=== PATIENT | female | born 1985 | race Caucasian/White ===

== ENCOUNTER 2018-06-14 21:43 | Emergency (ER) | payer BC ==
[~2018-06-14] VITALS: Ht 162.6 cm; Wt 70.3 kg
[~2018-06-14 21:43] MED LIST: ACET325T9 PO
--- NOTE | 2018-06-14 21:45 | ED.ADGEN ---
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 ankle and foot. Pt. states injury heard while walking. Patient states it was a inversion type injury. Has limped on ankle after the injury which occurred 2-3 hrs ago. Patient states pain has gotten worse and mid foot and ankle. Distal capillary refill is equal to left foot toes. For foot squeeze did not elicit significant pain. Mid foot squeeze had mild increase in pain. Marked pain on percussion of lateral malleolus. Does have some ligament instability and right ankle. Mild lateral malleolus edema. No upper leg tenderness. There is some tenderness on palpation of acute Achilles tendon. Pain with stress Achilles tendon, but seems to have some dorsal flexion. Patient is however able to dorsiflex some. Patient is unable to void at this time. No other injuries reported. No recent travel or ill contacts. History immunosuppression. Review of Systems Review of Systems Constitutional: Denies fever or chills [] Eyes: Denies change in visual acuity, redness, or eye pain [] HENT: Denies nasal congestion or sore throat [] Respiratory: Denies cough or shortness of breath [] Cardiovascular: No additional information not addressed in HPI [] GI: Denies abdominal pain, nausea, vomiting, bloody stools or diarrhea [] : Denies dysuria or hematuria [] Musculoskeletal: Denies back pain or joint pain []except findings in right ankle and foot as per history of present illness Integument: Denies rash or skin lesions [] Neurologic: Denies headache, focal weakness or sensory changes [] Endocrine: Denies polyuria or polydipsia [] All other systems were reviewed and found to be within normal limits, except as documented in this note. Family History Family History Sister in the ICU unit at Current Medications Current Medications Current Medications Medications (Trade) Dose Ordered Sig/Frandy Start Time Stop Time Status Last Admin Dose Admin Ketorolac Tromethamine (Toradol Im) 60 mg 1X ONCE 06/14/18 23:00 06/14/18 23:21 DC 06/14/18 23:10 60 MG Oxycodone/ Acetaminophen (Percocet 5/325) 2 tab 1X ONCE 06/15/18 00:00 06/15/18 00:45 DC 06/15/18 00:43 2 TAB Noncontributory Allergies Allergies Allergies Coded Allergies Type Severity Reaction Last Updated Verified No Known Drug Allergies 09/18/13 No Physical Exam Physical Exam Constitutional: in acute distress, non-toxic appearance. [] HENT: Normocephalic, atraumatic, bilateral external ears normal, oropharynx moist, no oral exudates, nose normal. [] Eyes: PERRLA, EOMI, conjunctiva normal, no discharge. [] Neck: Normal range of motion, no tenderness, supple, no stridor. [] Cardiovascular:Heart rate regular rhythm, no murmur [] Lungs & Thorax: Bilateral breath sounds equal at apex on auscultation with scattered wheezes. Abdomen: Bowel sounds normal, soft, no tenderness, no masses, no pulsatile masses. [] Skin: Warm, dry, no erythema, no rash. [] Back: No tenderness, no CVA tenderness. [] Extremities: No tenderness, no cyanosis, no clubbing, ROM intact, no edema. [] Except findings in right ankle and foot as per history of present illness Neurologic: Alert and oriented X 3, normal motor function, normal sensory function, no focal deficits noted. [] Psychologic: Affect very anxious, judgement normal, mood normal. [] Current Patient Data Vital Signs Vital Signs Date Time Temp Pulse Resp B/P (MAP) Pulse Ox O2 Delivery O2 Flow Rate FiO2 06/14/18 21:50 97.9 110 24 98 Room Air Lab Results Laboratory Tests Test 06/14/18 22:30 06/14/18 22:43 Urine Collection Type Void Urine Color Yellow Urine Clarity Hazy Urine pH 6.0 Urine Specific [place] 1.010 Urine Protein Neg (NEG-TRACE) Urine Glucose (UA) Neg mg/dL (NEG) Urine Ketones (Stick) Neg mg/dL (NEG) Urine Blood Trace (NEG) Urine Nitrite Neg (NEG) Urine Bilirubin Neg (NEG) Urine Urobilinogen Dipstick 0.2 mg/dL (0.2 mg/dL) Urine Leukocyte Esterase Trace (NEG) Urine RBC 1-2 /HPF (0-2) Urine WBC 5-10 /HPF (0-4) Urine Squamous Epithelial Cells Many /LPF Urine Bacteria Few /HPF (0-FEW) Urine Opiates Screen Neg (NEG) Urine Methadone Screen Neg (NEG) Urine Barbiturates Neg (NEG) Urine Phencyclidine Screen Neg (NEG) Urine Amphetamine/Methamphetamine Pos (NEG) Urine Benzodiazepines Screen Neg (NEG) Urine Cocaine Screen Neg (NEG) Urine Cannabinoids Screen Neg (NEG) Urine Ethyl Alcohol Neg (NEG) POC Urine HCG, Qualitative hcg negative (Negative) EKG EKG [] Radiology/Procedures Radiology/Procedures My interpretation of X-ray shows []no obvious fracture dislocation of right ankle and foot. There is some findings of increased edema in the Achilles tendon area. Course & Med Decision Making Course & Med Decision Making Pertinent Labs and Imaging studies reviewed. (See chart for details) Ice, elevation, splint, crutches, and take Tylenol ibuprofen pain. Follow-up primary care. Follow-up with orthopedics Vicoprofen up to 4 times a day. [] Final Impression Final Impression 1. Sprain Ankle-[]and Foot- Rt 2. Possible Achilles tendon tear/sprain Dragon Disclaimer Dragon Disclaimer This electronic medical record was generated, in whole or in part, using a voice recognition dictation system. LINDSAY BENTON MD Jun 14, 2018 21:45
[2018-06-14] MEDS ORDERED: HYDR-1179 PO (22:22)
--- NOTE | 2018-06-14 22:30 | RAD ---
ANKLE RIGHT 3V, FOOT RIGHT 3V Clinical Indication: Rolled right foot and ankle tonight. Pain at lateral aspect. No previous injury or surgery Comparison: None. Ankle Findings: There is no acute fracture or dislocation. The bony appearance is normal for patient age and the alignment is normal. The ankle mortise is intact. There is no ankle joint effusion. There is no soft tissue swelling. Foot findings: There is no acute fracture or dislocation. The bony alignment is normal. There is no soft tissue abnormality. IMPRESSION: No acute fracture. Electronically signed by: Renny Liu MD (06/14/2018 10:27 PM) [facility]
[2018-06-14 23:00] LABS: BILIRUBIN,URINE NEG (NEG); CLARITY,URINE HAZY; COLOR,URINE YELLOW; GLUCOSE,URINE NEG (NEG); NITRITE,URINE NEG (NEG); UROBILINOGEN,URINE 0.2 mg/dL (0.2 mg/dL)
[2018-06-14] MEDS ORDERED: KETOROLAC 60 MG/2 ML VIAL. IM ONE (23:00)
[2018-06-14 23:01] LABS: BACTERIA,URINE FEW /HPF (0-FEW); SQUAMOUS EPITHELIAL CELL,UR MANY /LPF
[2018-06-14 23:02] LABS: AMPHETAMINE/METHAMPHETAMINE POS (NEG); BARBITURATES NEG (NEG); BENZODIAZEPINES NEG (NEG); CANNABINOIDS NEG (NEG); COCAINE NEG (NEG); METHADONE NEG (NEG); OPIATES NEG (NEG); PHENCYCLIDINE NEG (NEG)
[2018-06-15] MEDS ORDERED: oxyCODONE/APAP 5/325 1 TAB TABLET PO ONE
[2018-06-15 00:05] VITALS: BP 110/59
== END 2018-06-15 00:50 | disposition home or self-care (01) ==
LOC: ER 21:43
DX: S93.401A Sprain of unspecified ligament of right ankle, initial encounter (principal); S93.601A Unspecified sprain of right foot, initial encounter; X50.9XXA Other and unspecified overexertion or strenuous movements or postures, initial encounter; Y93.01 Activity, walking, marching and hiking; Y92.89 Other specified places as the place of occurrence of the external cause; Y99.8 Other external cause status
CPT/HCPCS: 36415; 73610; 73630; 80307; 81001; 81025; 87086; 96372; 99284; J1885

== ENCOUNTER → 2018-12-26 | Outpatient (CLI) | payer BC ==
[~2018-12-26] MED LIST changes: +HYDR-1179 PO
[2018-12-26 17:54] LABS: BASO % 1 % (0-3); EOS # 0.2 x10^3/uL (0.0-0.7); EOS % 3 % (0-3); HEMATOCRIT 40.8 % (36.0-47.0); HEMOGLOBIN 13.7 g/dL (12.0-15.5); LYMPH # 2.2 x10^3/uL (1.0-4.8); LYMPH % 32 % (24-48); MEAN CORPUSCULAR HEMOGLOBIN 29 pg (25-35); MEAN CORPUSCULAR HGB CONC 34 g/dL (31-37); MEAN CORPUSCULAR VOLUME 86 fL (79-100); MONO # 0.4 x10^3/uL (0.0-1.1); MONO % 6 % (0-9); NEUT # 4.1 x10^3uL (1.8-7.7); NEUT % 59 % (31-73); PLATELET COUNT 294 x10^3/uL (140-400); RED BLOOD COUNT 4.73 x10^6/uL (3.50-5.40); RED CELL DISTRIBUTION WIDTH 13.7 % (11.5-14.5)
[2018-12-26 18:09] LABS: ALBUMIN 4.1 g/dL (3.4-5.0); ALBUMIN/GLOBULIN RATIO 1.2 (1.0-1.7); CALCIUM 9.3 mg/dL (8.5-10.1); CREATININE 0.7 mg/dL (0.6-1.0); GFR 97.6; POTASSIUM 3.6 mmol/L (3.5-5.1); TOTAL BILIRUBIN 0.5 mg/dL (0.2-1.0); TOTAL PROTEIN 7.4 g/dL (6.4-8.2)
[2018-12-27 01:10] LABS: ESTRADIOL LEVEL 29.7 pg/mL (.); FSH 5.1 mIU/mL (.); LUTEINIZING HORMONE 5.2 mIU/mL (.)
== END | disposition home or self-care (01) ==
LOC: LAB 17:35
PROVIDERS: ATTEND Internal Medicine
DX: R35.1 Nocturia (principal); N33 Bladder disorders in diseases classified elsewhere
CPT/HCPCS: 36415; 80053; 82670; 83001; 83002; 85025

== ENCOUNTER → 2018-12-27 | Outpatient (CLI) | payer BC ==
--- NOTE | 2018-12-27 16:27 | RAD ---
Examination: Ultrasound pelvis HISTORY: History of irregular periods COMPARISON: None available FINDINGS: The uterus measures 8.2 x 5.4 x 4.4 cm. The right ovary measures 4.3 x 2.2 x 3.2 cm. The left ovary measures 3.1 x 2.9 x 2.2 cm. Endometrium measures 3 mm in thickness. Blood flow identified in the right and left ovaries. Follicles identified in the right and left ovaries. IMPRESSION: Follicles identified in the right and left ovaries. Otherwise unremarkable exam. Electronically signed by: Lucien Begum MD (12/27/2018 4:24 PM) [id number]
== END | disposition home or self-care (01) ==
LOC: US 11:43
PROVIDERS: ATTEND Internal Medicine
DX: N83.8 Other noninflammatory disorders of ovary, fallopian tube and broad ligament (principal)
CPT/HCPCS: 76830; 76856

== ENCOUNTER 2019-08-31 07:54 | Emergency (ER) | payer BC, OTHER ==
[~2019-08-31] VITALS: Ht 162.6 cm; Wt 70.0 kg
[2019-08-31 08:13] VITALS: BP 122/73
[2019-08-31] MEDS ORDERED: KETOROLAC 60 MG/2 ML VIAL. IM ONE ×2 (08:20→08:30)
[2019-08-31] MEDS ORDERED: CYCL-331 PO (08:21)
--- NOTE | 2019-08-31 08:21 | PHYS DOC ---
Past History Past Medical History: Gallstones, Ovarian Cyst, Uterine Fibroids Additional Past Medical Histor: low back pain Past Surgical History: Cholecystectomy Smoking: Non-smoker Alcohol Use: Occasionally Drug Use: None Adult General Chief Complaint Chief Complaint: BACK PAIN OR INJURY HPI HPI Patient is a 33-year-old female who presents to the emergency department for evaluation. She states yesterday evening she began experiencing upper lumbar pain, in the paraspinal muscles bilaterally, significantly worsened with movements, and position changes. She denies any discrete injury, but states she did a lot of loading and unloading groceries yesterday. She states she has some chronic lower lumbar spinal pain and this pain is a little higher than her normal pain. She denies any numbness, weakness, incontinence, or any other discrete injuries. She has not had any fevers, chills, abdominal pain, or urinary symptoms. Other than movement worsens her pain, there are no alleviating or exacerbating factors to her symptoms. Review of Systems Review of Systems Constitutional: Denies fever or chills [] Eyes: Denies change in visual acuity, redness, or eye pain [] Respiratory: Has had some mild cough and congestion over the past few weeks, denies significant shortness of breath.[] GI: Denies abdominal pain, nausea, vomiting, bloody stools or diarrhea [] : Denies dysuria or hematuria. Denies . LMP 2 weeks ago[] Musculoskeletal: Denies neck or upper back pain or joint pain [] Integument: Denies rash or skin lesions [] Neurologic: Denies headache, focal weakness or sensory changes [] Current Medications Current Medications Current Medications Medications (Trade) Dose Ordered Sig/[facility] Start Time Stop Time Status Last Admin Dose Admin Ketorolac Tromethamine (Toradol Im) 60 mg 1X ONCE 08/31/19 08:15 08/31/19 08:16 UNV Allergies Allergies Allergies Coded Allergies Type Severity Reaction Last Updated Verified No Known Drug Allergies 09/18/13 No Physical Exam Physical Exam PHYSICAL EXAM: CONSTITUTIONAL: Well developed, well nourished HEAD: normocephalic, atraumatic EENT: PERRL, EOMI. Conjunctivae normal color, sclerae non-icteric; moist mucous membranes. NECK: Supple, non-tender; no meningismus. LUNGS: Lungs CTA, breathing even and unlabored. Normal air movement. HEART: Regular rate and rhythm, no murmur CHEST: No deformity; non-tender ABDOMEN: The abdomen is soft, and non-tender, no masses or bruits. EXTREM: Normal ROM; no deformity, no calf tenderness. Normal pulses palpable in all extremities. There is no pedal edema. SKIN: No rash; no diaphoresis NEURO: Alert; normal speech and cognition; CN's grossly intact; strength grossly intact without focal deficit. BACK: No CVA TTP. There is tenderness to palpation in the paraspinal muscles bilaterally, of the upper lumbar spine, without any focal bony midline tendern ess to palpation. EKG EKG [] Radiology/Procedures Radiology/Procedures [] Course & Med Decision Making Course & Med Decision Making Patient and I both agree that x-rays are low yield this time. We discussed home care plan, the need for close follow-up, and return precautions. Dragon Disclaimer Dragon Disclaimer This electronic medical record was generated, in whole or in part, using a voice recognition dictation system. Departure Departure: Impression: Primary Impression: Low back pain Disposition: HOME, SELF-CARE Condition: STABLE Referrals: DREW LONGORIA MD (PCP) Patient Instructions: Back Pain, Adult, Lumbosacral Strain Additional Instructions: Ibuprofen 400-600 mg every 6 hours may help improve your symptoms. Applying a heating pad to the affected area may help improve your symptoms. The prescribed medications may cause drowsiness-use caution while taking. Scripts Cyclobenzaprine Hcl (CYCLOBENZAPRINE HCL) 10 Mg Tablet 1 TAB PO TID PRN for PAIN, #20 TAB Prov: ROCIO GUZMAN MD 08/31/19 ROCIO GUZMAN MD Aug 31, 2019 08:21
== END 2019-08-31 08:27 | disposition home or self-care (01) ==
LOC: ER 07:54
DX: M54.5 Low back pain (principal); R09.81 Nasal congestion; R05 Cough; Z90.49 Acquired absence of other specified parts of digestive tract
CPT/HCPCS: 96372; 99283; J1885

== ENCOUNTER → 2019-09-03 | Outpatient (CLI) | payer OTHER ==
[2019-08-31 08:13] VITALS: BP 122/73
[~2019-09-03] MED LIST changes: +CYCL-331 PO
--- NOTE | 2019-09-03 17:40 | RAD ---
AP and lateral thoracic and lumbar spine radiographs 09/03/2019 CLINICAL HISTORY: Mid and low back pain post lifting injury. AP, two lateral and a swimmer's lateral digital radiographs of the thoracic spine were obtained. AP and three lateral digital radiographs of the lumbar spine were obtained. Surgical clips are seen within the right upper quadrant of the abdomen consistent with a cholecystectomy. Very mild S-shaped curvature of the thoracolumbar spine is seen. No fracture or subluxation of the thoracic or lumbar vertebrae is seen. No paravertebral soft tissue swelling is noted. Degenerative changes are seen involving the mid and lower thoracic and lower lumbar disc spaces consisting of vertebral endplate sclerosis and minimal anterior vertebral body osteophyte formation. Degenerative changes are seen involving the facet joints of the lower thoracic and lower lumbar spine. IMPRESSION: No acute osseous abnormality is seen. Electronically signed by: Koffi Hawkins MD (09/03/2019 5:37 PM) [id number]
== END | disposition home or self-care (01) ==
LOC: RAD 16:37
PROVIDERS: ATTEND Family Medicine
DX: M47.815 Spondylosis without myelopathy or radiculopathy, thoracolumbar region (principal); M51.35 Other intervertebral disc degeneration, thoracolumbar region; M25.78 Osteophyte, vertebrae
CPT/HCPCS: 72072; 72100

== ENCOUNTER 2021-01-28 12:44 | Emergency (ER) | payer BC, OTHER ==
[~2021-01-28] VITALS: Ht 162.6 cm; Wt 70.0 kg
[2021-01-28 12:55] VITALS: BP 123/81
[2021-01-28] MEDS ORDERED: KETOROLAC 60 MG/2 ML VIAL. IM ONE (13:45)
--- NOTE | 2021-01-28 13:49 | PHYS DOC ---
Past History Past Medical History: No Pertinent History Additional Past Medical Histor: low back pain (TOMA WHEELER APRN) Past Surgical History: Cholecystectomy (TOMA WHEELER APRN) Smoking: Non-smoker Alcohol Use: None Drug Use: None (TOMA WHEELER APRN) General Adult EDM: Chief Complaint: BACK PAIN OR INJURY HPI: HPI: Patient is a 35-year-old female being seen in the ER for low back pain. Patient reports she has a history of degenerative disc disease but pain has worsened. Patient called her primary care provider and they gave her prednisone and Flexeril she has not filled it yet. She went to the chiropractor she says that made the pain worse. She has been taking ibuprofen and tizanidine. She denies any radiation of pain currently but she reports that time she gets "numbness that is intermittent. She rates her pain 6 out of 10. It is worse with movement. No loss of bowel or bladder. Patient reports severe pain with ambulation. She reports she is able to bear weight and ambulate but it is very difficult and she walks with hunchback. Patient denies any saddle anesthesias. Patient denies any urinary complaints or nausea or vomiting. Patient denies any injury or heavy lifting. (TOMA WHEELER APRN) Review of Systems: Review of Systems: 14 body systems of the review of systems have been reviewed. See HPI for pertinent positive and negative responses, otherwise all other systems are negative, nonpertinent or noncontributory (TOMA WHEELER APRN) Allergies: Allergies: Allergies Coded Allergies Type Severity Reaction Last Updated Verified No Known Drug Allergies 09/18/13 No (TOMA WHEELER APRN) Physical Exam: PE: Constitutional: Well developed, well nourished, no acute distress, non-toxic appearance. [] HENT: Normocephalic, atraumatic, bilateral external ears normal, oropharynx moist, no oral exudates, nose normal. [] Eyes: PERRL, conjunctiva normal, no discharge. [] Neck: Normal range of motion, no bony spinal tenderness, supple, no stridor. [] Cardiovascular: Normal peripheral perfusion Lungs & Thorax: Normal work of breathing, no tachypnea Skin: Warm, dry, no erythema, no rash. [] Back: Lumbar paraspinal tenderness bilaterally with palpation, no CVA tenderness. [] Extremities: No tenderness, no cyanosis, no clubbing, ROM intact, no edema. [] Neurologic: Alert and oriented X 3, normal motor function, normal sensory function, no focal deficits noted. [] Psychologic: Affect normal, judgement normal, mood normal. [] (TOMA WHEELER APRN) Current Patient Data: Vital Signs: Vital Signs Date Time Temp Pulse Resp B/P (MAP) Pulse Ox O2 Delivery O2 Flow Rate FiO2 01/28/21 12:55 98.0 99 16 123/81 99 Room Air (TOMA WHEELER APRN) EKG: EKG: [] (TOMA WHEELER APRN) Radiology/Procedures: Radiology/Procedures: PROCEDURE: CT LUMBAR SPINE WO CONTRAST CT LUMBAR SPINE WO History:Reason: LOW BACK PAIN / Spl. Instructions: / History: Technique: Noncontrast CT was performed of the lumbar spine. Multiplanar reconstructions were performed. Exposure: One or more of the following individualized dose reduction techniques were utilized for this examination: 1. Automated exposure control 2. Adjustment of the mA and/or kV according to patient size 3. Use of iterative reconstruction technique. Comparison: None Findings: Grade 1 anterolisthesis L5 on S1. Bilateral L5 pars defects. Normal vertebral body height. No acute fracture. Punctate nonobstructing right intrarenal calculi. Right inferior renal hypodensity, likely cyst. T12-L1: No canal or neuroforaminal narrowing. L1-L2: No canal or neuroforaminal narrowing. L2-L3: Small disc bulge. Mild facet arthropathy. No canal or neuroforaminal narrowing. L3-L4: Small disc bulge. Mild facet arthropathy. No canal or neuroforaminal narrowing. L4-L5: Central disc protrusion. No canal narrowing. Mild facet arthropathy. No neuroforaminal narrowing. L5-S1: Anterolisthesis. Disc uncovering. Slight disc extrusion superiorly. No canal narrowing. Mild facet arthropathy. Minimal neuroforaminal narrowing. Impression: 1. Mild lumbar spondylosis. 2. Grade 1 anterolisthesis L5 on S1 due to bilateral pars defects. Electronically signed by: Dilip Childers DO (01/28/2021 2:21 PM) [id number] DICTATED AND SIGNED BY: DILIP CHILDERS DO DATE: 01/28/21 1410 CC: TOMA WHEELER APRN; DREW LONGORIA MD ~MTH0 0[] (TOMA WHEELER APRN) Heart Score: C/O Chest Pain: No Risk Factors: Risk Factors: DM, Current or recent (<one month) smoker, HTN, HLP, family history of CAD, obesity. Risk Scores: Score 0 - 3: 2.5% MACE over next 6 weeks - Discharge Home Score 4 - 6: 20.3% MACE over next 6 weeks - Admit for Clinical Observation Score 7 - 10: 72.7% MACE over next 6 weeks - Early Invasive Strategies (TOMA WHEELER APRN) Course & Med Decision Making: Course & Med Decision Making Pertinent Labs and Imaging studies reviewed. (See chart for details) [] Patient is a 35-year-old female being seen for lumbar back pain. She has a history of low back pain. A CT scan was performed of her lumbar spine that was negative for any acute fracture but did show disc slippage L5 and S1 and patient was given a IM injection of Toradol. She was advised to take her prednisone and Flexeril that was previously prescribed to her by her primary care provider. She needs to follow-up with her primary care provider or orthopedic doctor. I discussed with patient all findings and diagnostic testing as well as the need to follow-up with PCP for further evaluation and treatment or return to the ER if any new or worsening symptoms. Strict return precautions were also discussed at length. Patient voiced understanding and agreement with the plan. Patient is hemodynamically stable at the time of disposition. (TOMA WHEELER APRN) Dragon Disclaimer: Dragon Disclaimer: This electronic medical record was generated, in whole or in part, using a voice recognition dictation system. (TOMA WHEELER APRN) Dragon Disclaimer: I have participated in the care of this patient and I have reviewed and agree with all pertinent clinical information above including history, exam, and recommendations. (JACKLYN LITTLEJOHN DO) Departure Departure: Impression: Primary Impression: Anterolisthesis Disposition: HOME / SELF CARE / HOMELESS Condition: GOOD Referrals: DREW LONGORIA MD (PCP) Patient Instructions: Back Pain, Adult Additional Instructions: You were seen in the ER for low back pain. A CT scan was performed of your lumbar spine that showed mild misalignment of your spine at L5 and S1. You can take Tylenol/ibuprofen for mild pain. Your primary care provider discharged you with prednisone and Flexeril, please fill this prescription and take as directed. You were treated in the ER with a Toradol injection. Please follow- up with your primary care provider tomorrow regarding your ER visit today. You may need to follow-up with an orthopedic physician. If you develop worsening of your pain, numbness or tingling in your groin or extremities, loss of bowel or bladder, inability to bear weight or walk please return to the ER immediately. EMERGENCY DEPARTMENT GENERAL DISCHARGE INSTRUCTIONS Thank you for coming to [facility] (ED) today and trusting us with you care. We trust that you had a positivie experience in our Emergency Department. If you wish to speak to the department management, you may call the director at [phone]. YOUR FOLLOW UP INSTRUCTIONS ARE FOLLOWS: 1. Do you have a private Doctor? If you do not have a private doctor, please ask for a resource list of physicians or clinics that may be able to assist you with follow up care. 2. The Emergency Physician has interpreted your x-rays. The X-Ray specialist will also review them. If there is a change in the findings, you will be notified in 48 hours when at all possible. 3. A lab test or culture has been done, your results will be reviewed and you will be notified if you need a change in treatment. ADDITIONAL INSTRUCTIONS AND INFORMATION: 1. Your care today has been supervised by a physician who is specially trained in emergency care. Many problems require more than one evaluation for a complete diagnosis and treatment. We recommend that you schedule your follow up appointment as recommended to ensure complete treatment of you illness or injury. If you are unable to obtain follow up care and continue to have a problem, or if your condition worsens, we recommend that you return to the ED. 2. We are not able to safely determine your condition over the phone nor are we able to give sound medical advice over the phone. For these safety reasons, if you call for medical advice we will ask you to come to the ED for further evaluation. 3. If you have any questions regarding these discharge instructions please call the ED at [phone]. SAFETY INFORMATION: In the interest of safety, wellness, and injury prevention; we encourage you to wear your sealbelt, if you smoke; quite smoking, and we encourage family to use a protective helmet for bicycling and other sporting events that present an increased risk for head injury. IF YOUR SYMPTOMS WORSEN OR NEW SYMPTOMS DEVELOP, OR YOU HAVE CONCERNS ABOUT YOUR CONDITION; OR IF YOUR CONDITION WORSENS WHILE YOU ARE WAITING FOR YOUR FOLLOW UP APPOINTMENT; EITHER CONTACT YOUR PRIMARY CARE DOCTOR, THE PHYSICIAN WHOSE NAME AND NUMBER YOU WERE GIVEN, OR RETURN TO THE ED IMMEDIATELY. TOMA WHEELER APRN Jan 28, 2021 13:49 JACKLYN LITTLEJOHN DO Jan 28, 2021 16:42
--- NOTE | 2021-01-28 14:23 | RAD ---
CT LUMBAR SPINE WO History:Reason: LOW BACK PAIN / Spl. Instructions: / History: Technique: Noncontrast CT was performed of the lumbar spine. Multiplanar reconstructions were perform ed. Exposure: One or more of the following individualized dose reduction techniques were utilized for thi s examination: 1. Automated exposure control 2. Adjustment of the mA and/or kV according to patient size 3. Use of iterative reconstruction technique. Comparison: None Findings: Grade 1 anterolisthesis L5 on S1. Bilateral L5 pars defects. Normal vertebral body height. No acute f racture. Punctate nonobstructing right intrarenal calculi. Right inferior renal hypodensity, likely cyst. T12-L1: No canal or neuroforaminal narrowing. L1-L2: No canal or neuroforaminal narrowing. L2-L3: Small disc bulge. Mild facet arthropathy. No canal or neuroforaminal narrowing. L3-L4: Small disc bulge. Mild facet arthropathy. No canal or neuroforaminal narrowing. L4-L5: Central disc protrusion. No canal narrowing. Mild facet arthropathy. No neuroforaminal narrow ing. L5-S1: Anterolisthesis. Disc uncovering. Slight disc extrusion superiorly. No canal narrowing. Mild facet arthropathy. Minimal neuroforaminal narrowing. Impression: 1. Mild lumbar spondylosis. 2. Grade 1 anterolisthesis L5 on S1 due to bilateral pars defects. Electronically signed by: Dilip Childers DO (01/28/2021 2:21 PM) [id number]
== END 2021-01-28 15:14 | disposition home or self-care (01) ==
LOC: ER 12:44
DX: M54.5 Low back pain (principal); R20.0 Anesthesia of skin; Z90.49 Acquired absence of other specified parts of digestive tract
CPT/HCPCS: 72131; 81025; 96372; 99284; J1885

== ENCOUNTER → 2021-07-13 | Outpatient (CLI) | payer BC ==
[~2021-07-13] MED LIST changes: -CYCL-331 PO; +CYCL10TA19 PO
--- NOTE | 2021-07-13 16:52 | RAD ---
EXAM: Right ribs, 4 views. HISTORY: Fracture. COMPARISON: None. FINDINGS: 4 views of the right ribs are obtained. No acute rib fracture is seen. The lungs are clear. The heart is normal in size. IMPRESSION: No acute osseous finding. Electronically signed by: Arely Costa MD (07/13/2021 4:50 PM) [id number]
== END ==
LOC: RAD 16:30
PROVIDERS: ATTEND Internal Medicine
DX: S22.41XD Multiple fractures of ribs, right side, subsequent encounter for fracture with routine healing (principal); X58.XXXD Exposure to other specified factors, subsequent encounter
CPT/HCPCS: 71100